=== PATIENT | female | born 1955 | race Caucasian/White ===

== ENCOUNTER 2017-11-17 09:27 | Day surgery (SDC) | payer MEDICARE, MEDICAID, OTHER ==
[2017-11-17] MEDS ORDERED: hydrALAzine 20 MG INJ (11:03)
[2017-11-17] MEDS ORDERED: LIDOCAINE 2% (SDV) 5 ML INJ (11:07)
[2017-11-17] MEDS ORDERED: PROPOFOL 60 ML (11:08)
== END 2017-11-17 19:10 | disposition home or self-care (01) ==
LOC: GIL 09:27
DX: D12.6 Benign neoplasm of colon, unspecified (principal); K29.60 Other gastritis without bleeding; K64.8 Other hemorrhoids; I10 Essential (primary) hypertension; E11.9 Type 2 diabetes mellitus without complications
CPT/HCPCS: 43239; 82962; 87081; 88305